=== PATIENT | female | born 1965 | race Caucasian/White ===

== ENCOUNTER → 2022-06-07 | Day surgery (SDC) | payer OTHER ==
[~2022-06-07] MED LIST: CETIRIZINE HCL10 MG PO; COPPER2 MG PO; FUROSEMIDE20 MG PO; GABAPENTIN400 MG PO; METAXALONE800 MG PO; OMEPRAZOLE40 MG PO; PHENERGAN 25 MG25 M1 PO; POTASSIUM CHLO10 ME1 PO; VITAMIN D21250 MCG PO
== END | disposition home or self-care (01) ==
LOC: OR 07:07
DX: Z12.11 Encounter for screening for malignant neoplasm of colon (principal); K21.00 Gastro-esophageal reflux disease with esophagitis, without bleeding; K29.60 Other gastritis without bleeding; K31.9 Disease of stomach and duodenum, unspecified; Z72.89 Other problems related to lifestyle; Z87.891 Personal history of nicotine dependence; Z79.899 Other long term (current) drug therapy; Z88.1 Allergy status to other antibiotic agents
CPT/HCPCS: 43239; G0121; 71046; 73130; J2250; J3010